=== PATIENT | female | born 1970 | race Caucasian/White ===

== ENCOUNTER 2017-11-25 21:25 | Emergency (ER) | payer OTHER ==
[~2017-11-25] VITALS: Ht 152.4 cm; Wt 89.0 kg
[~2017-11-25 21:25] MED LIST: CYCL10TA PO; EXCETAB PO; HYDR-3516 PO; LITH150C PO; OLOP1DRO2 LEFT EYE; PROP20TA3 PO; QUET400T PO; VIIB20TA PO
[2017-11-25 21:27] VITALS: BP 134/93; PULSE 104; RESP 20; TEMP 98.4; O2SAT 98
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
[2017-11-25] MEDS ORDERED: ORPHENADRINE INJ 60 MG/2 ML AMP IM ONE (23:15)
[2017-11-25] MEDS ORDERED: KETOROLAC TROMETHAMINE 60 MG/2 ML (IM) VIAL IM ONE (23:15)
[2017-11-25] MEDS ORDERED: ROBA750T PO (23:18)
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
== END 2017-11-25 23:38 | disposition home or self-care (01) ==
LOC: NEPC 21:25
DX: S16.1XXA Strain of muscle, fascia and tendon at neck level, initial encounter (principal); S29.012A Strain of muscle and tendon of back wall of thorax, initial encounter; I10 Essential (primary) hypertension; F41.8 Other specified anxiety disorders; F43.10 Post-traumatic stress disorder, unspecified; V49.49XA Driver injured in collision with other motor vehicles in traffic accident, initial encounter; Y92.410 Unspecified street and highway as the place of occurrence of the external cause
CPT/HCPCS: 70450; 71046; 72072; 72125; 96372; 99284; J1885; J2360; L0150